=== PATIENT | male | born 1970 | race Caucasian/White ===

== ENCOUNTER 2024-09-16 07:20 | Inpatient (IN) | payer OTHER, SELFPAY ==
[2024-09-16] VITALS (9 sets, daily range): BP systolic 127–194; BP diastolic 71–118; BMI 36.8
--- NOTE | 2024-09-16 04:06 | ED.GENMED ---
History of Present Illness
General
Chief Complaint: Abdominal Pain
Time Seen by Provider: 09/16/24 04:05
History of Present Illness
History of Present Illness:
TIME OF INITIAL ENCOUNTER: 4:15 AM
HPI: Approximately 7 hours ago, the patient started having diffuse abdominal pain. More recently this is associated with severe episodes of dry heaving. He has not had any diarrhea. He did have some bowel movements but were normal. He does have
a remote history of abdominal wall hernia repair at another hospital, possibly [facility]. He has had no fevers, no chest pain.
EXAM:
GENERAL: Well appearing but he does appear somewhat uncomfortable
HEENT: Moist oral mucosa
CARDIOVASCULAR: No murmurs, normal heart rate, regular rhythm, No chest wall tenderness
PULMONARY: No respiratory distress, breath sounds are clear and equal
ABDOMEN: Soft with no peritoneal signs, mild diffuse abdominal tenderness, no palpable hernia
NEUROLOGIC: Excellent strength all extremities, no coordination deficits
PSYCHIATRIC: Appropriate mental status, normal insight and judgement
EXTREMITIES: Nontender, no edema, moves all extremities equally
SKIN: No rash, no lesions
NUMBER AND COMPLEXITY OF PROBLEMS ADDRESSED AT THE ENCOUNTER
� Chronic conditions affecting care: High blood pressure, anxiety/depression, has had hernia repairs
� Acute Exacerbation and/or Progression of Chronic Illness: This is an acute problem
� Differential Diagnosis includes: Recurrence of abdominal wall hernia, small bowel obstruction, viral syndrome, mesenteric adenitis, pancreatitis, cholecystitis
AMOUNT AND/OR COMPLEXITY OF DATA TO BE REVIEWED AND ANALYZED
� I performed an independent evaluation of and my interpretation is:
EKG:
CT: I personally reviewed CT imaging and agree with radiologist interpretation that there is extensive mesenteric edema
X-rays:
Laboratory Studies: White count 14.7, hemoglobin normal, electrolytes unremarkable, bicarb 35, creatinine 1.2, urinalysis normal
Other:
� Review of other/old records: No old records available for review
� Clinical information was obtained by an independent historian: I spoke to at bedside
� Prescriptions/Medications Considered but not given: Offered and considered narcotic analgesia for the patient initially declines
� Further testing considered but not performed:
RISK OF COMPLICATIONS AND/OR MORBIDITY OR MORTALITY OF PATIENT MANAGEMENT
� Social determinants of health affecting care: Lives at home
� Discussion with other providers: Notified Dr. Gonzalez, surgeon on-call along with hospitalist for admission at 5:48 AM
� Escalation of care including admission/observation vs risk of discharge considered: The patient appears rather uncomfortable but declines analgesia. Will obtain CT imaging
ANY OTHER UPDATES:
5:45 AM: The patient does have some ongoing pain but does appear more comfortable after dose of Dilaudid was given. He was also given IV fluids and Zofran.
Phy Exam
Physical Exam
Physical Exam:
See HPI
Course
Orders/Labs/Results
Orders:
Orders
09/16/24 04:13
CT Abd/pelvis W Iv Cont Urgent
Comment:
Reason For Exam: diffuse abd pain; prior abd wall hernia sx
09/16/24 04:16
Complete Blood Count/With Diff Urgent
Comprehensive Metabolic Panel Urgent
Lipase Urgent
09/16/24 04:17
0.9% Sodium Chloride 1000 ml [Nss] 1,000 ml IV BOLUS
09/16/24 04:36
HYDROmorphone [Dilaudid] 1 mg IV NOW STA
Ondansetron Injectable [Zofran] 4 mg IV NOW STA
09/16/24 05:04
Urinalysis Reflex To Culture Urgent
Date Specimen was Collected: 09/16/24
Time Specimen was Collected: 05:02
09/16/24 05:52
Lactic Acid Urgent
Abnormal Lab Results
09/16/24
04:16
WBC 14.7 H 10^3/uL
(4.8-10.8)
Abs Immat Gran (auto) 0.1 H 10^3/uL
(0-0.05)
Absolute Neuts (auto) 12.2 H 10^3/uL
(1.4-6.5)
Absolute Monos (auto) 0.8 H 10^3/uL
(0.1-0.6)
Neutrophils % 82.6 H %
(42.2-75.2)
Lymphocytes % 10.8 L %
(20.5-51.1)
Chloride 95 L mmol/L
(98-107)
Carbon Dioxide 35 H mmol/L
(22-30)
Glucose 146 H mg/dl
(70-99)
09/16/24 04:16
09/16/24 04:16
Vital Signs
Initial and Last Documented VS:
Initial Vital Signs
Temp Pulse Resp BP Pulse Ox
37.1 C 69 22 194/118 99
09/16/24 03:57 09/16/24 03:57 09/16/24 03:57 09/16/24 03:57 09/16/24 03:57
Last Documented Vital Signs
Temp Pulse Resp BP Pulse Ox
37.1 C 67 14 149/94 99
09/16/24 03:57 09/16/24 06:09 09/16/24 06:09 09/16/24 06:09 09/16/24 06:09
*Critical Care Note
Total Time (30-74mins, 75-104mins- exclusive of procedures): Not Applicable
ED Attending Note
-
Portions of this chart may have been created with voice recognition software.� Occasional wrong word or��sound alike� substitutions may have occurred due to the inherent limitations of voice recognition software.
Discharge Plan
Departure
Patient Disposition: Admit
Date of Disposition: 09/16/24
Time of Disposition: 05:50
Presentation/result/management discussed w/ accepting MD/DO: Hospitalist
Discharge Problem:
Enteritis
Prescriptions:
No Action
chlorthalidone 25 mg Tablet
25 mg PO DAILY
gabapentin 300 mg Capsule
300 mg PO DAILY
losartan 100 mg Tablet
100 mg PO DAILY
bupropion HCl 300 mg Tablet Extended Release 24 Hr
300 mg PO DAILY
Bp Medication
1 tab PO DAILY
Patient Comments:
pt cannot remember name of medication
duloxetine
1 cap PO DAILY
Patient Comments:
pt does not know mg
Referrals:
PRIVATE,PHYSICIAN [Family Provider] -
Interventions
Interventions:
*Risk Screen - Suicide Last Done: 09/16/24 03:57
*General Assessment Last Done: 09/16/24 03:57
*Neglect/Abuse Screening Last Done: 09/16/24 03:57
*ED COVID-19 Vaccine History Last Done: 09/16/24 03:57
[facility] Assessment Last Done: 09/16/24 04:36
Discharge Date and Time
Print Language: CZECH
[2024-09-16] MEDS: NSS 1000 IV (04:28)
[2024-09-16 04:36] LABS: % Basophils 0.5 % (0-2); % Eosinophils 0.3 % (0-6); % Immature Granulocytes 0.4 % (0-0.5); % Lymphocytes 10.8 % (20.5-51.1); % Monocytes 5.4 % (1.7-9.3); % Neutrophils 82.6 % (42.2-75.2); Absolute Basophils 0.1 10^3/uL (0-0.2); Absolute Immature Granulocytes 0.1 10^3/uL (0-0.05); Absolute Lymphocytes 1.6 10^3/uL (1.2-3.4); Absolute Monocytes 0.8 10^3/uL (0.1-0.6); Absolute Neutrophils 12.2 10^3/uL (1.4-6.5); Hematocrit 47.7 % (39.0-52.0); Hemoglobin 16.3 g/dL (13.0-18.0); Mean Corp Hgb Conc. 34.2 g/dL (33.0-37.0); Mean Corpuscular Hgb 28.4 pg (27.0-31.0); Mean Corpuscular Volume 83.2 fL (80.0-94.0); Mean Platelet Volume 9.8 fL (7.4-10.4); Nucleated Red Blood Cells % 0 % (-); Platelet Count 267 10^3/uL (130-400); Red Blood Cell Count 5.73 10^6/uL (4.70-6.10); Red Cell Dist. Width 13.1 % (11.5-14.5); White Blood Cell Count 14.7 10^3/uL (4.8-10.8)
--- NOTE | 2024-09-16 04:36 | EDRN ---
Pt has not been to sleep tonight because he has had abdominal pain x 7 hours that waxes and wanes. Pain in the middle of his abdomen. Pt has been dry heaving and had nausea. No ill contacts. Pt denies fever/chills, cp, sob, urinary symptoms,
diarrhea, dizziness. Pt says he has been constipated - Last BM 2 hours ago and pt says it was hard to go. Pt reports occasional cough due to allergies (dry heat). Pt requesting nausea and pain medication - Dr Cao informed.
[2024-09-16] MEDS: ZOFRAN 4 MG IV (04:45)
[2024-09-16] MEDS: DILAUDID 1 MG IV (04:57)
[2024-09-16 05:00] LABS: ALT (SGPT) 25 U/L (0-50); AST (SGOT) 26 U/L (17-59); Albumin 4.4 g/dl (3.5-5.0); Alkaline Phosphatase 66 U/L (38-126); Blood Urea Nitrogen 19 mg/dl (9-20); Calcium 9.7 mg/dl (8.4-10.2); Carbon Dioxide 35 mmol/L (22-30); Chloride 95 mmol/L (98-107); Estimated Creatinine Clearance 87 ml/min; Glucose 146 mg/dl (70-99); Lipase 57 U/L (23-300); Potassium 3.5 mmol/L (3.5-5.1); Sodium 140 mmol/L (135-145); Total Bilirubin 0.7 mg/dl (0.2-1.3); Total Protein 7.5 g/dl (6.3-8.2); eGFR > 60.00
[2024-09-16 05:12] LABS: Urine Albumin Trace (Neg - Trace); Urine Bilirubin Negative (Negative); Urine Character Clear (Clear); Urine Color Yellow; Urine Glucose Negative (Negative); Urine Ketone Negative (Negative); Urine Leukocyte Negative (Negative); Urine Nitrite Negative (Negative); Urine Occult Blood Negative (Negative); Urine Urobilinogen Negative (Neg - 1+)
[2024-09-16 06:12] LABS: Lactic Acid 1.3 mmol/L (0.7-2.0)
--- NOTE | 2024-09-16 06:36 | HPS.HSE ---
Family Physician
-
Family Physician: PHYSICIAN PRIVATE
Chief Complaint
-
Acute abdominal pain
History of Present Illness
This is a 54-year-old with past medical history significant for hypertension, ventral abdominal hernia status post repair with placement of elongated mesh, hypertension and depression/anxiety who presents to ED with sudden development of diffuse
abdominal pain.
Patient reports feeling well until after dinner when he developed some mild abdominal pain diffusely. Then it got worse and worse as the evening progressed. He reported nausea and dry heaving. He had a normal bowel movement without melena.
Patient denies any known sick contacts. He reported having a new meal (fried zucchinis) from prior. Passing gas and belching. Denies fevers or chills. Denies any other changes. Denies alcohol. Denies GERD. Denies any urinary symptoms.
Had colonoscopy in the past with removal of single polyp otherwise normal.
In the ED he was hypertensive with a blood pressure 178/110, pulse was 64 and he was satting 98% on room air. He was afebrile. White count was 14.7 hemoglobin 16.3. Electrolytes were normal with a bicarb of 35. BUN/creatinine stable at 19 and
1.2. UA was unremarkable. He had a CT of the abdomen and pelvis which showed extensive mesenteric edema and small bowel inflammation reflecting enteritis with Caliber of small bowel loops suggesting developing obstruction.
Medical History
Past Medical History
Past Medical History: Reports HTN and Psychiatric
Past Surgical History: Reports Other (Ventral hernia repair)
Social History
Tobacco: Non-smoker
Alcohol: Occasional
Drug: None
Personal:
Living: With Family
Family History
Family History: Not pertinent
Allergies / Home Medications
Allergies reflects when Allergies were last updated in [facility].
Home Medications with original date entered in [facility]
Allergy/Medication List:
Allergies
Allergy/AdvReac Type Severity Reaction Status Date / Time
No Known Allergies Allergy Unverified 09/16/24 03:57
Home Medications
Bp Medication 1 tab PO DAILY 09/16/24
bupropion HCl 300 mg 24 hr tablet, extended release 300 mg PO DAILY 09/16/24
chlorthalidone 25 mg tablet 25 mg PO DAILY 09/16/24
duloxetine 1 cap PO DAILY 09/16/24
gabapentin 300 mg capsule 300 mg PO DAILY 09/16/24
losartan 100 mg tablet 100 mg PO DAILY 09/16/24
Review of Systems
-
History Source: Patient
Constitutional: Reports No Symptoms
EENT: Reports No Symptoms
Respiratory: Reports No Symptoms
Cardiac: Reports No Symptoms
Abdomen/GI: Reports Abdominal Pain and Nausea
: Reports No Symptoms
Musculoskeletal: Reports No Symptoms
Skin: Reports No Symptoms
Neurological: Reports No Symptoms
Endocrine: Reports No Symptoms
Hematologic/Lymphatic: Reports No Symptoms
Psych: Reports No Symptoms
Physical Exam
Vital Signs
Vital Signs
Temp Pulse Resp BP Pulse Ox
98.7 F 67 14 149/94 99
09/16/24 03:57 09/16/24 06:09 09/16/24 06:09 09/16/24 06:09 09/16/24 06:09
Physical Exam
General: Well Developed, Well Nourished and Pain
HEENT: NormoCephalic, Anicteric, Moist mucous membranes and Atraumatic
Respiratory: Clear
Cardiac: S1/S2 and Regular Rhythm
Breast: Deferred by me
GI: Other (Firm abdomen throughout. Slightly distended. Tender to palpation in the epigastrum and RLQ. +BS but more quite in the RLQ. )
Rectal: Deferred by Provider
Genito-urinary: Deferred by me
Musculoskeletal: No Clubbing, No Cyanosis and No Edema
Skin: Warm
Neuro: AO x 3 and Nonfocal/grossly intact
Laboratory Results
-
09/16/24 04:16
09/16/24 04:16
Laboratory Results
Lactic Acid 1.3 mmol/L (0.7-2.0) 09/16/24 05:52
Total Bilirubin 0.7 mg/dl (0.2-1.3) 09/16/24 04:16
AST 26 U/L (17-59) 09/16/24 04:16
ALT 25 U/L (0-50) 09/16/24 04:16
Alkaline Phosphatase 66 U/L (38-126) 09/16/24 04:16
Lipase 57 U/L (23-300) 09/16/24 04:16
Data Reviewed
-
CT Scan: Report Reviewed by me
Lab Data: Labs Reviewed by me
Old Records: Reviewed
Impression/Plan
-
IMPRESSION:
54 y.o male with h/o hypertension presenting with acute abdominal pain. Labs unremarkable. CT shows enteritis with caliber of small bowel in the top normal size. No transition point but there is concern for development of obstruction. Suspect
possibly enteritis with obstruction. Last bm was just prior to coming to ED. Passing gas and belching. No vomiting. No prior h/o IBD.
PLAN:
1. Abdominal pain - Acute enteritis / early SBO
- admit to med/surg
- npo for now except meds
-pain control and antiemetics
- no indication for ng tube currently
- serial examinations
- surgery consulted and aware
2. HTN
- will continue losartan and hold chlorthalidone
- d5 1/2 NS maintenance fluid
3. Psych
- continue buproprion, gabapenting and duloxetin
DVT PPX - lovenox sq
Code status - full code
--- NOTE | 2024-09-16 07:59 | EDRN ---
Patient taken to room 437-1 in wheelchair.
[2024-09-16] MEDS: WELLBUTRIN XL (24 hour extended release) 300 MG PO (08:46)
[2024-09-16] MEDS: COZAAR 100 MG PO (08:47)
--- NOTE | 2024-09-16 11:05 | CON.GS ---
Consultation
-
Date/Time Consultation Requested: 09/16/24 0759
Requesting Provider: Marco
Reason for Consultation: possible early sbo
Medical History
-
Chief Complaint: Abdominal pain
History of Present Illness:
Mr Muñiz is a 54 yo male with a h/o ventral hernia repair x2 with mesh and HTN who presents through the ED with generalized abdominal pain which began around 9pm last night with associated nausea and dry heaving causing him to present to the ED for
evaluation. Last night, he had a meal of meatballs and fried zucchini and initially felt well, but did develop abdominal pain several hours later. He denies bowel changes and had regular BM's yesterday x2 with a normal BM early this am. He denies
hematochezia, diarrhea or constipation. He has been passing flatus. The pain is still present but improved. There is no focal tenderness on exam although the left lower abdomen is a bit more tender than the right. He denies recent sick contacts. He
denies any recent intake of undercooked/raw meat/fish/poultry or unusual dietary intake.
Past Medical History
Past Medical History: HTN and Psychiatric
Past Surgical History: Hernia Repair (VHR x2 with mesh) and Other (Colonoscopy last year with small polyp)
Social History
Tobacco: Non-Smoker
Alcohol: Occasional
Personal:
Living: With Family (in [facility])
Family History
Family History: Reviewed & Not Pertinent
Allergies / Home Medications
Allergy/AdvReac Type Severity Reaction Status Date / Time
No Known Allergies Allergy Unverified 09/16/24 03:57
�Medication �Instructions �Recorded �Confirmed �Type
Bp Medication 1 tab PO DAILY 09/16/24 09/16/24 History
bupropion HCl 300 mg 24 hr tablet, 300 mg PO DAILY 09/16/24 09/16/24 History
extended release
chlorthalidone 25 mg tablet 25 mg PO DAILY 09/16/24 09/16/24 History
duloxetine 1 cap PO DAILY 09/16/24 09/16/24 History
gabapentin 300 mg capsule 300 mg PO DAILY 09/16/24 09/16/24 History
losartan 100 mg tablet 100 mg PO DAILY 09/16/24 09/16/24 History
Review of Systems
-
History Source: Patient
All other systems: Negative unless noted
A 10 point review of systems was completed, and was negative except as per HPI.
Physical Exam
Vital Signs
Temp Pulse Resp BP Pulse Ox
97.7 F 71 20 161/101 98
09/16/24 08:12 09/16/24 08:12 09/16/24 08:12 09/16/24 08:12 09/16/24 08:12
09/15/24 09/16/24 09/17/24
06:59 06:59 06:59
Actual Weight 109.9 kg
Body Mass Index (BMI) 36.8
Lab Results
09/16/24 04:16
09/16/24 04:16
WBC 14.7 10^3/uL (4.8-10.8) H 09/16/24 04:16
Hgb 16.3 g/dL (13.0-18.0) 09/16/24 04:16
Hct 47.7 % (39.0-52.0) 09/16/24 04:16
Plt Count 267 10^3/uL (130-400) 09/16/24 04:16
Abs Immat Gran (auto) 0.1 10^3/uL (0-0.05) H 09/16/24 04:16
Neutrophils % 82.6 % (42.2-75.2) H 09/16/24 04:16
Physical Exam
General: Well Developed and Well Nourished
HEENT: Moist Mucous Membranes
Respiratory: Non Labored Respirations
GI: Soft, Tender (generalized L>R), Distended (minimal) and Other (No rebound, rigidity or guarding)
Skin: Warm and Dry
Neuro: Awake, Alert and AO x 3
Psych: Calm
Assessment / Plan
-
54 yo male with h/o VHR presenting through the ED with abdominal pain and nausea beginning last night around 9pm. No recent raw/undercooked meat/fish/poultry or sick contacts. CT imaging reviewed with inflammatory changes suggestive of small bowel
enteritis notes with some associated pelvic fluid. Leukocytosis present suggestive of infectious/inflammatory process. Lactate is normal with no peritoneal signs on exam; therefore, ischemic etiology is unlikely. Afebrile, hypertensive with normal
HR. No active vomiting but with intermittent mild nausea.
Plan:
No plans for emergent surgical intervention, will follow for improvement medically
Start abx with IV zosyn 3.375mg q6h
Keep NPO until symptomatic improvement
IVF while NPO
Analgesics/antiemetics
Medical management as per primary team
[2024-09-16] MEDS: D5/0.45%NACL 1000 IV (12:00)
[2024-09-16] MEDS: ZOSYN 50 IV ×2 (13:21→18:02)
--- NOTE | 2024-09-16 15:03 | W.PN.HOSP.TC ---
Addendum entered and electronically signed by Aleshia Coe MD 09/16/24 15:27:
I saw and evaluated the patient independently. I reviewed the resident�s note and agree with findings and plan as documented by Dr. Bae.
GENERAL: well developed, well nourished, male in no apparent distress
HEENT: NC/AT
HEART: regular rate and rhythm, +S1, +S2
LUNGS : clear to auscultation bilaterally
ABDOM: soft, nontender, distended, decreased bowel sounds
EXT: no cyanosis, clubbing, or edema
NEUROLOGIC: grossly intact
Abdominal pain/n/v--CT scan with Enteritis and possible early SBO�unclear etiology--apprec surgery--consider GI if no better tomorrow--cont IVF--zosyn for now--no need for NGT decompression at this time
Essential hypertension� Continue losartan� Hold chlorthalidone� Continue D5 0.45% IVF
Anxiety/depression� Continue psychiatric home meds
DVT Proph�Lovenox subq
CODE STATUS: Full code
Original Note:
Today's Communication/Plan
-
Continue n.p.o.
Continue IV antibiotic
Continue IVF
Assessment / Plan
Assessment / Plan
Impression: This is a 54-year-old male patient with past medical history of high blood pressure, history of hernia repair with mesh and anxiety/depression who presented to the ED with generalized abdominal pain that was associated with nausea and
dry heaving.
Assessment/plan:
#Enteritis�unclear etiology
-CT abdomen:
-General Surgery consulted
� Continue n.p.o.
- Will advance diet as per surgery
� Continue IV fluids, analgesics, antiemetics
�Was started on prophylactic antibiotics Zosyn as per surgery
#Essential hypertension
� Continue losartan
� Hold chlorthalidone
� Continue D5 0.45% IVF
#Anxiety/depression
� Continue psychiatric home meds
DVT PPx�Lovenox subq
CODE STATUS: Full code
Anticipated Discharge: 24 - 48 hours
Subjective/Interval History
-
Date of Service: September 16, 2024
Patient complains of mild abdominal pain today. No nausea or vomiting.
Objective Data
-
Labs:
Laboratory Results
09/16/24
04:16
WBC 14.7 H
Hgb 16.3
Hct 47.7
Plt Count 267
Sodium 140
Potassium 3.5
Chloride 95 L
Carbon Dioxide 35 H
BUN 19
Creatinine 1.2
Glucose 146 H
Calcium 9.7
Total Bilirubin 0.7
AST 26
ALT 25
Alkaline Phosphatase 66
Vital Signs:
Vital Signs
Temp Pulse Resp BP Pulse Ox
97.9 F 70 20 139/78 98
09/16/24 14:43 09/16/24 14:43 09/16/24 14:43 09/16/24 14:43 09/16/24 14:43
Review of Systems
-
Constitutional: Denies Fever
EENT: Reports No Symptoms Reported
Respiratory: Reports No Symptoms
Cardiac: Reports No Symptoms
Abdomen/GI: Reports Abdominal Pain; Denies Nausea or Vomiting
Genitourinary: Reports No Symptoms
Musculoskeletal: Reports No Symptoms
Skin: Reports No Symptoms
Neuro: Reports No Symptoms
Physical Exam
-
General: No Apparent Distress
HEENT: Normocephalic
Respiratory: Clear to Auscultation
Cardiac: Regular Rhythm and S1/S2; Negative Murmur
GI: Soft, Nondistended and Tender
Musculoskeletal: No Edema
Skin: Warm and Dry
Neuro: Awake, Alert and Oriented
Psych: Calm
[2024-09-16] MEDS: NEURONTIN 300 MG PO (21:58)
[2024-09-16] MEDS: CYMBALTA DELAYED RELEASE 30 MG PO (21:59)
[2024-09-17] MEDS: ZOSYN 50 IV ×3 (00:01→13:44)
[2024-09-17] MEDS: D5/0.45%NACL 1000 IV ×2 (05:42→13:44)
[2024-09-17 07:05] VITALS: BP 126/77
--- NOTE | 2024-09-17 07:34 | W.PN.HOSP.TC ---
Addendum entered and electronically signed by Ana Luevano MD 09/18/24 11:25:
total DC time 38 min
Addendum entered and electronically signed by Ana Luevano MD 09/17/24 15:24:
I personally performed a history and physical exam of the patient and discussed management with the resident. I reviewed the resident's note and agree with the documented findings and plan of care HPI/CC.
Impression: This is a 54-year-old male patient with past medical history of high blood pressure, history of hernia repair with mesh and anxiety/depression who presented to the ED with generalized abdominal pain that was associated with nausea and
dry heaving.
Assessment/plan:
# Abdominal pain with nausea/vomiting 2/2 Enteritis�unclear etiology
Small bowel follow through without obstruction
Okay to start clears
appreciate General Surgery input
analgesics, antiemetics
Continue Zosyn coverage
# Essential hypertension
Continue losartan
Hold chlorthalidone
# Anxiety/depression
Continue psychiatric home meds
DVT PPx�Lovenox subq
CODE STATUS: Full code
Original Note:
Today's Communication/Plan
-
Small bowel follow-through
Continue n.p.o., IV fluids for now
Assessment / Plan
Assessment / Plan
Impression: This is a 54-year-old male patient with past medical history of high blood pressure, history of hernia repair with mesh and anxiety/depression who presented to the ED with generalized abdominal pain that was associated with nausea and
dry heaving.
Assessment/plan:
# Abdominal pain with nausea/vomiting: Enteritis�unclear etiology
-CT abdomen:
-General Surgery consulted, appreciated
� Continue n.p.o.
-Small bowel follow-through ordered
- Will advance diet if small bowel follow-through is normal
� Continue IV fluids, analgesics, antiemetics
� Continue Zosyn
#Essential hypertension
� Continue losartan
� Hold chlorthalidone
� Continue D5 0.45% IVF
#Anxiety/depression
� Continue psychiatric home meds
DVT PPx�Lovenox subq
CODE STATUS: Full code
Anticipated Discharge: 24 - 48 hours
Subjective/Interval History
-
Date of Service: September 17, 2024
Patient states that his abdominal pain improved
Objective Data
-
Labs:
Laboratory Results
09/17/24
06:50
WBC Pending
Hgb Pending
Hct Pending
Plt Count Pending
Sodium Pending
Potassium Pending
Chloride Pending
Carbon Dioxide Pending
BUN Pending
Creatinine Pending
Glucose Pending
Calcium Pending
Total Bilirubin Pending
AST Pending
ALT Pending
Alkaline Phosphatase Pending
Vital Signs:
Vital Signs
Temp Pulse Resp BP Pulse Ox
97.9 F 72 18 127/71 98
09/16/24 23:21 09/16/24 23:21 09/16/24 23:21 09/16/24 23:21 09/16/24 23:21
I&O
09/16/24 09/17/24 09/18/24
06:59 06:59 06:59
Intake Total 1010 / 1010
Balance 1010 / 1010
Review of Systems
-
All other systems: Reviewed and negative
Physical Exam
-
General: No Apparent Distress
HEENT: Normocephalic
Respiratory: Clear to Auscultation
Cardiac: Regular Rhythm and S1/S2; Negative Murmur
GI: Soft, Nontender, Nondistended and Normal Bowel Sounds
Musculoskeletal: No Edema
Skin: Warm and Dry
Neuro: Awake, Alert and Oriented
Psych: Calm
[2024-09-17 08:36] LABS: % Basophils 0.6 % (0-2); % Eosinophils 1.3 % (0-6); % Immature Granulocytes 0.5 % (0-0.5); % Lymphocytes 27.4 % (20.5-51.1); % Monocytes 9.9 % (1.7-9.3); % Neutrophils 60.3 % (42.2-75.2); Absolute Basophils 0.1 10^3/uL (0-0.2); Absolute Eosinophils 0.1 10^3/uL (0-0.7); Absolute Lymphocytes 2.4 10^3/uL (1.2-3.4); Absolute Monocytes 0.9 10^3/uL (0.1-0.6); Absolute Neutrophils 5.3 10^3/uL (1.4-6.5); Hematocrit 39.4 % (39.0-52.0); Hemoglobin 13.3 g/dL (13.0-18.0); Mean Corp Hgb Conc. 33.8 g/dL (33.0-37.0); Mean Corpuscular Hgb 28.2 pg (27.0-31.0); Mean Corpuscular Volume 83.7 fL (80.0-94.0); Mean Platelet Volume 10.3 fL (7.4-10.4); Nucleated Red Blood Cells % 0 % (-); Platelet Count 225 10^3/uL (130-400); Red Blood Cell Count 4.71 10^6/uL (4.70-6.10); Red Cell Dist. Width 13.2 % (11.5-14.5); White Blood Cell Count 8.7 10^3/uL (4.8-10.8)
[2024-09-17 09:26] LABS: ALT (SGPT) 17 U/L (0-50); AST (SGOT) 21 U/L (17-59); Albumin 3.3 g/dl (3.5-5.0); Alkaline Phosphatase 48 U/L (38-126); Blood Urea Nitrogen 15 mg/dl (9-20); Calcium 8.2 mg/dl (8.4-10.2); Carbon Dioxide 32 mmol/L (22-30); Chloride 99 mmol/L (98-107); Estimated Creatinine Clearance 80 ml/min; Glucose 106 mg/dl (70-99); Potassium 3.1 mmol/L (3.5-5.1); Sodium 137 mmol/L (135-145); Total Bilirubin 0.9 mg/dl (0.2-1.3); Total Protein 5.8 g/dl (6.3-8.2); eGFR > 60.00
--- NOTE | 2024-09-17 09:33 | W.PN.GS2 ---
Addendum entered and electronically signed by Sukhdeep Jean MD 09/17/24 16:32:
Small bowel follow-through reviewed, no obstruction, consistent with enteritis.
Will start clears, can advance diet as tolerated and if he is tolerating well can discharge later today versus tomorrow per primary.
Patient can follow-up with me as an outpatient if needed.
Original Note:
Today's Communication / Plan
-
Small bowel follow-through
Assessment / Plan
-
This is a 54-year-old male status post open umbilical hernia repair with mesh complicated by recurrence status post laparoscopic repair (OSH), hypertension who presents with a 1 day history of abdominal pain with associated nausea but no emesis or
diarrhea found to have inflamed loops of bowel on the CT scan concerning for enteritis, and small segment of fecalized small bowel. Clinically improved today.
Will obtain a small bowel follow-through which will be both therapeutic and potentially diagnostic. If things are moving through, can start on clears and advance as tolerated.
N.p.o., IV fluids for now.
Will defer antibiotics to primary.
All questions answered and patient agreeable to plan of care above.
General surgery will continue to follow.
I spent 50 minutes in total for the care of this patient today including direct patient care and counseling, reviewing labs, imaging, coordination of care, as well as documentation.
Subjective Data
-
Date of Service: September 17, 2024
Interval Events:
No acute events overnight. Slept well. Pain Controlled. Denies Nausea/Vomiting, +bowel function. Tolerating diet.
Objective Data
-
Intake and Output
09/16/24 09/17/24 09/18/24
06:59 06:59 06:59
Intake Total 1010 / 1010
Balance 1010 / 1010
Intake:
Oral fluids 960 / 960
IV piggybacks 50 / 50
Other:
Number of approximated MODERATE 3
amounts of urine
Vital Signs
Temp Pulse Resp BP Pulse Ox
98.3 F 64 16 126/77 94
09/17/24 07:05 09/17/24 07:05 09/17/24 07:05 09/17/24 07:05 09/17/24 07:05
Lab Results
09/17/24 06:50
09/17/24 06:50
Calcium 8.2 mg/dl (8.4-10.2) L D 09/17/24 06:50
Total Bilirubin 0.9 mg/dl (0.2-1.3) 09/17/24 06:50
AST 21 U/L (17-59) 09/17/24 06:50
ALT 17 U/L (0-50) 09/17/24 06:50
Alkaline Phosphatase 48 U/L (38-126) 09/17/24 06:50
Total Protein 5.8 g/dl (6.3-8.2) L D 09/17/24 06:50
Albumin 3.3 g/dl (3.5-5.0) L 09/17/24 06:50
Physical Exam
-
GENERAL/NEURO: Awake, Alert, no distress
CHEST: Unlabored breathing on RA
ABDOMEN: Soft, obese, Non-Tender, Non-Distended
EXTREMITIES: warm, well perfused, no jaundice, no cyanosis, no edema
[2024-09-17] MEDS: WELLBUTRIN XL (24 hour extended release) 300 MG PO (09:48)
[2024-09-17] MEDS: COZAAR 100 MG PO (09:48)
[2024-09-17 10:29] LABS: Magnesium 2.3 mg/dl (1.6-2.3)
[2024-09-17] MEDS: KCL 270 MEQ IV (15:23)
[2024-09-17 16:00] VITALS: BP 153/93
--- NOTE | 2024-09-17 16:39 | CM ---
city manager reviewed patient's chart and met with patient and patient and patient lives in a split level home, patient is independent with adl's and ambulation, patient works and drives, home when stable, no needs.
PCP: Unknown
Pharmacy: [facility] in [place]
Plan; Home no needs.
--- NOTE | 2024-09-17 17:01 | W.DCSUMMARY ---
Documented by User: Virginie Bae MD, Resident 09/18/24 07:30
Discharge Summary
Discharge Data
Date of Admission: 09/16/24
Date of Discharge: 09/18/24
-
Pending Results: No
Hospital Course
Discharging Physician : ,
Disposition : Home
Principal Discharge diagnosis : Acute Gastroenteritis
Chronic Discharge diagnosis : Hypertension, Bipolar
Hospital Course : This is a 54-year-old with past medical history significant for hypertension, ventral abdominal hernia status post repair with placement of elongated mesh, hypertension and depression/anxiety who presents to ED with sudden
development of diffuse abdominal pain. CT abdomen showed wall thickening and inflammatory fat stranding of fluid-filled small bowel loops in the central abdomen most suggestive of an enteritis. Patient was admitted for concern of SBO with surgery
consulted. He was kept NPO along with IV fluids. No surgical intervention was needed. Small bowel Xray showed no evidence of small bowel obstruction. Patient's diet was advanced and he tolerated well. Patient improved clinically and was stable for
discharge.
Important imaging findings :
1/ CT Abd: wall thickening and inflammatory fat stranding of fluid-filled small bowel loops in the central abdomen most suggestive of an enteritis. Mild abdominopelvic ascites.
09/17 Small Bowel Xray: No evidence of small bowel obstruction or delayed transit. Multiple loops of bowel of small bowel within the right mid/lower abdomen demonstrate mild wall thickening which is likely related to enteritis.
Discharge Plan
-
Patient Disposition: Home (Routine Discharge)
Discharge Diagnosis/Procedures: Acute Gastroenteritis/enteritis, Hypertension, Anxiety/Depression
Condition: Good
Diet: As tolerated
Activity: As tolerated
Driving Restrictions: As prior to admission
Referrals:
PRIVATE,PHYSICIAN [Family Provider] - in less than 1 week
Prescriptions:
Continued
chlorthalidone 25 mg Tablet
25 mg PO DAILY
gabapentin 300 mg Capsule
300 mg PO DAILY
losartan 100 mg Tablet
100 mg PO DAILY
bupropion HCl 300 mg Tablet Extended Release 24 Hr
300 mg PO DAILY
Bp Medication
1 tab PO DAILY
Patient Comments:
pt cannot remember name of medication
duloxetine
1 cap PO DAILY
Patient Comments:
pt does not know mg
Discharge Orders:
Discharge Patient (As Directed); Ordered 09/17/24
Ordered By: Virginie Bae
Discharge Date and Time
Discharge Date/Time: 09/17/24 19:00
Print Language: ICELANDIC

Documented by User: Ana Luevano MD 09/18/24 11:25
Discharge Summary
Discharge Data
Date of Admission: 09/16/24
Date of Discharge: 09/18/24
Hospital Course
Discharging Physician : Dr.Kasarapu Alexsander
Disposition : Home
Principal Discharge diagnosis : Acute Gastroenteritis
Chronic Discharge diagnosis : Hypertension, Bipolar
Hospital Course : This is a 54-year-old with past medical history significant for hypertension, ventral abdominal hernia status post repair with placement of elongated mesh, hypertension and depression/anxiety who presented to ED with sudden
development of diffuse abdominal pain. CT abdomen showed wall thickening and inflammatory fat stranding of fluid-filled small bowel loops in the central abdomen most suggestive of an enteritis. Patient was admitted for concern of SBO with surgery
consulted. He was kept NPO along with IV fluids. No surgical intervention was needed. Small bowel Xray showed no evidence of small bowel obstruction. Patient's diet was advanced to solid and he tolerated well. Patient improved clinically and was
stable for discharge.
Important imaging findings :
09/16 CT Abd: wall thickening and inflammatory fat stranding of fluid-filled small bowel loops in the central abdomen most suggestive of an enteritis. Mild abdominopelvic ascites.
09/17 Small Bowel Xray: No evidence of small bowel obstruction or delayed transit. Multiple loops of bowel of small bowel within the right mid/lower abdomen demonstrate mild wall thickening which is likely related to enteritis.
Discharge Plan
-
Patient Disposition: Home (Routine Discharge)
Discharge Diagnosis/Procedures: Acute Gastroenteritis/enteritis, Hypertension, Anxiety/Depression
Condition: Good
Diet: As tolerated
Activity: As tolerated
Driving Restrictions: As prior to admission
Referrals:
PRIVATE,PHYSICIAN [Family Provider] - in less than 1 week
Prescriptions:
Continued
chlorthalidone 25 mg Tablet
25 mg PO DAILY
gabapentin 300 mg Capsule
300 mg PO DAILY
losartan 100 mg Tablet
100 mg PO DAILY
bupropion HCl 300 mg Tablet Extended Release 24 Hr
300 mg PO DAILY
Bp Medication
1 tab PO DAILY
Patient Comments:
pt cannot remember name of medication
duloxetine
1 cap PO DAILY
Patient Comments:
pt does not know mg
Discharge Orders:
Discharge Patient (As Directed); Ordered 09/17/24
Ordered By: Virginie Bae
Discharge Date and Time
Discharge Date/Time: 09/17/24 19:00
Print Language: ICELANDIC
--- NOTE | 2024-09-18 07:30 | W.SUR.PREOP ---
Pre-Operative Surgical Note
-
I have examined this patient prior to the performance of the scheduled procedure.
The patient's condition is unchanged from the time of the current History and
Physical and the patient is able to undergo the scheduled procedure.
== END 2024-09-17 19:00 | disposition home or self-care (01) | DRG 392 ==
LOC: 4 WEST ACU 07:20
PROVIDERS: Student in an Organized Health Care Education/Training Program; ADMITTING PHYSICIAN Internal Medicine; ATTENDING PHYSICIAN Internal Medicine; EMERGENCY PHYSICIAN Emergency Medicine; OTHER PHYSICIAN Surgery
DX: K52.9 Noninfective gastroenteritis and colitis, unspecified (principal); I10 Essential (primary) hypertension; F32.A Depression, unspecified; F41.9 Anxiety disorder, unspecified; Z79.899 Other long term (current) drug therapy
CPT/HCPCS: 74177; 74250; 80053; 81003; 83605; 83690; 83735; 85025; 96361; 96374; 96375; 99285; Q9967